=== PATIENT | male | born 1965 | race Native Hawaiian/Other Pacific Islander ===

== ENCOUNTER 2020-07-12 15:56 | Outpatient (CLI) | payer BC ==
[2020-07-12 16:43] LABS: PLATELET COUNT 253 K/uL (142-355)
[2020-07-12 16:46] LABS: POTASSIUM 4.2 mmol/L (3.6-5.2); SODIUM 137 mmol/L (136-145)
== END 2020-07-12 22:31 | disposition home or self-care (01) ==
LOC: LABW 15:56
PROVIDERS: ATTEND Family Medicine
DX: R07.9 Chest pain, unspecified (principal); R10.13 Epigastric pain
CPT/HCPCS: 36415; 80053; 82150; 82550; 82553; 83690; 84484; 85027; 86318

== ENCOUNTER 2021-09-04 12:44 | Outpatient (CLI) | payer BC, OTHER ==
[~2021-09-04] VITALS: Ht 182.9 cm; Wt 114.3 kg
== END 2021-09-04 22:09 | disposition home or self-care (01) ==
LOC: INF 12:44
PROVIDERS: ATTEND Family Medicine
DX: U07.1 COVID-19 (principal); Z23 Encounter for immunization
CPT/HCPCS: 96365; M0244

== ENCOUNTER 2022-06-20 08:30 | Outpatient (CLI) | payer BC | END 2022-06-20 19:09 | disposition home or self-care (01) | LOC: RAD 08:30 | PROVIDERS: ATTEND Family Medicine | DX: M25.571 Pain in right ankle and joints of right foot (principal) ==